=== PATIENT | male | born 1990 | race Caucasian/White ===

== ENCOUNTER 2018-03-29 14:29 | Emergency (ER) | payer MEDICAID ==
[~2018-03-29] VITALS: Ht 165.1 cm; Wt 75.5 kg
[2018-03-29 15:09] LABS: CLARITY,URINE TURBID (Clear); COLOR,URINE Red (Yellow); UA COLLECTION TYPE CLN CATCH MIDSTREAM
[2018-03-29 15:14] LABS: BACTERIA,URINE FEW /HPF (Neg); MUCUS STRANDS NONE SEEN /LPF (Neg); RBC,URINE TNTC /HPF (0-2); SQUAMOUS EPITHELIAL CELL,UR NONE SEEN /LPF (FEW)
[2018-03-29] MEDS ORDERED: NITR-79 PO (15:52)
[2018-03-29] MEDS ORDERED: ONDA4TAB6 PO (15:57)
[2018-03-29 16:08] VITALS: BP 131/62
== END 2018-03-29 16:10 | disposition home or self-care (01) ==
LOC: ER 14:30
DX: N39.0 Urinary tract infection, site not specified (principal); Z79.899 Other long term (current) drug therapy
CPT/HCPCS: 81001; 87088; 99283